=== PATIENT | female | born 2000 ===

== ENCOUNTER 2025-02-13 13:32 | Emergency (ER) | payer OTHER ==
[~2025-02-13] VITALS: Ht 182.9 cm; Wt 81.7 kg
[2025-02-13] MEDS ORDERED: IBUP800 PO (15:45)
== END 2025-02-13 15:55 | disposition home or self-care (01) ==
LOC: ER 13:32
DX: M77.8 Other enthesopathies, not elsewhere classified (principal); Z79.899 Other long term (current) drug therapy
CPT/HCPCS: 73610; 76882; 99284-25

== ENCOUNTER 2025-07-02 22:13 | Emergency (ER) | payer OTHER ==
[~2025-07-02] VITALS: Ht 182.9 cm; Wt 90.7 kg
[~2025-07-02 22:13] MED LIST: IBUP800 PO
[2025-07-02] MEDS ORDERED: DiphenhydrAMINE HCl 50 MG/ML 1ML Vial IV ONE (22:55)
[2025-07-02] MEDS ORDERED: Ketorolac Tromethamine 15mg Vial IV ONE (22:55)
[2025-07-02] MEDS ORDERED: Prochlorperazine Edisylate 10 mg Vial IV ONE (22:55)
[2025-07-02] MEDS ORDERED: NS 1,000 ML IV SCH (22:55)
== END 2025-07-03 00:39 | disposition home or self-care (01) ==
LOC: ER 22:13
DX: G43.909 Migraine, unspecified, not intractable, without status migrainosus (principal)
CPT/HCPCS: 96374; 96375; 99283-25; J0780; J1200; J1885; J7030